=== PATIENT | female | born 1995 | race Caucasian/White ===

== ENCOUNTER 2020-02-18 16:08 | Outpatient (CLI) | payer OTHER ==
--- NOTE | 2020-02-18 16:55 | RADIOLOGY REPORT (SQ) ---
EXAM DESCRIPTION: U/S OB LIMITED IMAGES COMPLETED DATE/TIME: 02/18/2020 4:40 pm REASON FOR STUDY: 21.2 weeks with Vaginal bleeding COMPARISON: None. TECHNIQUE: Limited transabdominal grayscale ultrasound for evaluation of specific requested obstetri tacos parameters. LIMITATIONS: None. FINDINGS: CERVICAL LENGTH: 3.7 cm Closed. LVP: 4.3 cm. FHR: 140 beats per minute. PRESENTATION: Cephalic. PLACENTA: Anterior ANATOMY: Not assessed OTHER: No other significant findings. US EGA: 21 weeks 1 day Clinical EGA: 21 weeks 2 days IMPRESSION: LIMITED OBSTETRICAL ULTRASOUND WITH MEASURED PARAMETERS DELINEATED ABOVE. Trimester of : Second trimester - 13 weeks 1 day to 27 weeks 6 days. TECHNICAL DOCUMENTATION: JOB ID: [id number] 2010 [employer]- All Rights Reserved Reading location - IP/workstation name: [email or web address]
[2020-02-18 18:04] LABS: AMORPHOUS SEDIMENT,URINE TRACE /HPF; APPEARANCE,URINE SLIGHTLY-CLOUDY; BILIRUBIN,URINE NEGATIVE (NEGATIVE); COLOR,URINE YELLOW; GLUCOSE, URINE NEGATIVE (NEGATIVE); KETONES,URINE NEGATIVE (NEGATIVE); LEUKOCYTE ESTERASE,URINE LARGE (NEGATIVE); NITRITE,URINE NEGATIVE (NEGATIVE); PROTEIN,URINE NEGATIVE (NEGATIVE); UROBILINOGEN,URINE NEGATIVE mg/dL (<2.0)
[2020-02-18] MEDS ORDERED: LIDOCAINE 1% INJ-PF (10 MG/ML) 30 ML SDV ONE (18:09)
[2020-02-18] MEDS ORDERED: CEFTRIAXONE INJ 1000 MG VIAL ONE (18:09)
[2020-02-18 18:15] LABS: URINE AMPHETAMINES SCREEN NEGATIVE; URINE BARBITURATES SCREEN NEGATIVE; URINE BENZODIAZEPINES SCREEN NEGATIVE; URINE COCAINE SCREEN NEGATIVE; URINE MARIJUANA (THC) SCREEN NEGATIVE; URINE METHADONE SCREEN NEGATIVE; URINE PHENCYCLIDINE SCREEN NEGATIVE
[2020-02-18] MEDS ORDERED: LIDOCAINE 1% INJ-PF (10 MG/ML) 30 ML SDV INJ ONE (18:30)
[2020-02-18] MEDS ORDERED: CEFTRIAXONE INJ 500 MG VIAL IM ONE (18:30)
== END 2020-02-18 18:33 | disposition home or self-care (01) ==
LOC: LC 16:08
PROVIDERS: ATTEND Student in an Organized Health Care Education/Training Program
DX: O46.92 Antepartum hemorrhage, unspecified, second trimester (principal); Z3A.21 21 weeks gestation of pregnancy
CPT/HCPCS: 81001; 80307; 76815; 59899; J3490; J0696

== ENCOUNTER 2020-05-13 09:36 | Outpatient (CLI) | payer OTHER ==
[2020-05-13 10:18] LABS: BACTERIA (WET MOUNT) 4+ BACTERIA SEEN; EPITHELIALS (WET MOUNT) 4+ EPITHELIALS SEEN; RBCS (WET MOUNT) FEW RBCS SEEN; T.VAGINALIS (WET MOUNT) TRICHOMONAS SEEN; WBCS (WET MOUNT) 3+ WBCS SEEN; YEAST (WET MOUNT) NO YEAST SEEN
[2020-05-13 10:20] LABS: APPEARANCE,URINE CLOUDY; BILIRUBIN,URINE NEGATIVE (NEGATIVE); COLOR,URINE YELLOW; GLUCOSE, URINE NEGATIVE (NEGATIVE); KETONES,URINE NEGATIVE (NEGATIVE); LEUKOCYTE ESTERASE,URINE LARGE (NEGATIVE); NITRITE,URINE NEGATIVE (NEGATIVE); PROTEIN,URINE NEGATIVE (NEGATIVE); UROBILINOGEN,URINE NEGATIVE mg/dL (<2.0)
[2020-05-13 10:36] LABS: URINE AMPHETAMINES SCREEN NEGATIVE; URINE BARBITURATES SCREEN NEGATIVE; URINE BENZODIAZEPINES SCREEN NEGATIVE; URINE COCAINE SCREEN NEGATIVE; URINE MARIJUANA (THC) SCREEN NEGATIVE; URINE METHADONE SCREEN NEGATIVE; URINE PHENCYCLIDINE SCREEN NEGATIVE
[2020-05-13] MEDS ORDERED: METRONIDAZOLE 500 MG TABLET ONE (11:01)
[2020-05-13] MEDS ORDERED: METRONIDAZOLE 500 MG TABLET PO ONE (11:07)
--- NOTE | 2020-05-13 11:42 | Non Stress Test Report ---
Non Stress Test Datetime Report Generated by CPN: 05/13/2020 11:41 DEMOGRAPHIC Test Number: 1 EGA NST: 33.3 INDICATION Indication for Study (NST) Other: back pain MONITORING Monitor Explained: Monitor Explained; Test Explained; Patient Verbalized Understanding Time on Monitor: 05/13/2020 11:16 Time off Monitor: 05/13/2020 11:40 NST Duration: 24 NST INTERVENTIONS NST Interventions: None Physician Notified NST: Dr Phan BABY A: [id number] BABY A Movement : Present Contraction Frequency : none FHR Baseline : 130 Accelerations : 15X15 Decelerations : None Variability : Moderate 6-25bpm NST Review: Meets Criteria for Reactive NST NST Results: Reactive NST REPORT Report Trigger: Send Report
[2020-05-13 12:34] LABS: CHLAM PCR NOT DETECTED (NOT DETECT)
== END 2020-05-13 11:51 | disposition home or self-care (01) ==
LOC: LC 09:36
PROVIDERS: ATTEND Obstetrics & Gynecology
DX: O98.313 Other infections with a predominantly sexual mode of transmission complicating pregnancy, third trimester (principal); A59.01 Trichomonal vulvovaginitis; Z3A.33 33 weeks gestation of pregnancy
CPT/HCPCS: 80307; 81001; 84112; 87210; 87491; 87591

== ENCOUNTER 2020-07-03 19:46 | Inpatient (IN) | payer OTHER ==
[2020-07-03] MEDS ORDERED: OXYTOCIN/0.9 % SODIUM CHLORIDE 30 UNIT/500 ML RTUINJ IV PRN (20:13)
[2020-07-03] MEDS ORDERED: RINGERS SOLUTION,LACTATED 1,000 ML IV ONE (20:13)
[2020-07-03] MEDS ORDERED: DINOPROSTONE 10 MG VAGINAL INSERT.SR PV PRN (20:13)
[2020-07-03 20:31] LABS: APPEARANCE,URINE CLEAR; BILIRUBIN,URINE NEGATIVE (NEGATIVE); COLOR,URINE YELLOW; GLUCOSE, URINE NEGATIVE (NEGATIVE); KETONES,URINE NEGATIVE (NEGATIVE); LEUKOCYTE ESTERASE,URINE NEGATIVE (NEGATIVE); NITRITE,URINE NEGATIVE (NEGATIVE); PROTEIN,URINE NEGATIVE (NEGATIVE); URINE SPECIFIC GRAVITY 1.012; UROBILINOGEN,URINE NEGATIVE mg/dL (<2.0)
[2020-07-03 20:46] LABS: URINE AMPHETAMINES SCREEN NEGATIVE; URINE BARBITURATES SCREEN NEGATIVE; URINE BENZODIAZEPINES SCREEN NEGATIVE; URINE COCAINE SCREEN NEGATIVE; URINE MARIJUANA (THC) SCREEN NEGATIVE; URINE METHADONE SCREEN NEGATIVE; URINE PHENCYCLIDINE SCREEN NEGATIVE
[2020-07-03] MEDS ORDERED: OXYTOCIN/0.9 % SODIUM CHLORIDE 30 UNIT/500 ML RTUINJ ONE (21:14)
[2020-07-03] MEDS ORDERED: MISOPROSTOL 0.2 MG TABLET ONE (21:14)
[2020-07-03] MEDS ORDERED: OXYTOCIN 10 UNIT/ML VIAL ONE (21:14)
[2020-07-03] MEDS ORDERED: LIDOCAINE 1% INJ-PF (10 MG/ML) 30 ML SDV ONE (21:14)
[2020-07-03] MEDS ORDERED: DINOPROSTONE 10 MG VAGINAL INSERT.SR ONE (21:59)
[2020-07-03] MEDS: RINGERS SOLUTION,LACTATED 1,000 ML IV PRN (22:08)
[2020-07-03 22:12] LABS: ABSOLUTE BASOPHILS # (AUTO) 0.1 10^3/uL (0.0-0.2); ABSOLUTE EOSINOPHILS # (AUTO) 0.1 10^3/uL (0.0-0.6); ABSOLUTE LYMPHOCYTES (AUTO) 1.9 10^3/uL (0.5-4.7); ABSOLUTE NEUT (AUTO) 11.6 10^3/uL (1.7-8.2); BASOPHILS % (AUTO) 0.4 % (0-2); HEMATOCRIT 39.3 % (36.0-47.0); HEMOGLOBIN 13.3 g/dL (12.0-15.5); LYMPHOCYTES % (AUTO) 13.1 % (13-45); MEAN CORPUSCULAR HEMOGLOBIN 28.3 pg (27.0-33.4); MEAN CORPUSCULAR HGB CONC 33.8 g/dL (32.0-36.0); MEAN CORPUSCULAR VOLUME 84 fl (80-97); PLATELET COUNT 183 10^3/uL (150-450); RED BLOOD COUNT 4.69 10^6/uL (3.72-5.28); RED CELL DISTRIBUTION WIDTH 14.6 % (11.5-14.0); SEGMENTED NEUTROPHILS % (AUTO) 78.5 % (42-78); TOTAL CELLS COUNTED % (AUTO) 100 %; WHITE BLOOD COUNT 14.8 10^3/uL (4.0-10.5)
[2020-07-04] MEDS ORDERED: ZOLPIDEM TARTRATE 5 MG TABLET ONE (00:11)
[2020-07-04] MEDS: RINGERS SOLUTION,LACTATED 1,000 ML IV PRN ×2 (05:54→16:33)
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
[2020-07-04] MEDS ORDERED: MISOPROSTOL 0.1 MG TABLET ONE (10:47)
[2020-07-04] MEDS ORDERED: MISOPROSTOL 0.2 MG TABLET ONE (10:47)
[2020-07-04] MEDS ORDERED: FENTANYL/BUPIVACAINE/NS/PF 300 MCG/150 ML RTUINJ EPI ONE (15:24)
[2020-07-04] MEDS ORDERED: ROPIVACAINE HCL 0.2% INJ/PF (2 MG/ML) 20 ML SDV ONE (15:24)
[2020-07-04] MEDS ORDERED: EPHEDRINE SULFATE INJ 50 MG/1 ML AMPULE ONE (15:24)
--- NOTE | 2020-07-04 15:26 | L&D Progress Notes ---
PROGRESS NOTES Datetime Report Generated by CPN: 07/04/2020 15:26 PROGRESS NOTE Procedures: Artificial ROM; Sterile Vag Exam Plan: Continue Present Management; Induction Informed Consent Obtained: Vaginal Delivery; Induction of Labor; Risks, Benefits and Alternatives Discussed Vital Signs : Reviewed; Within Normal Limits Comment: S: breathing and crying with contractions, desires epidural at this time O:VSS, cervix as stated, cat I tracing, uc q 1.5-3min A: IUP @ 40w6d IOL secondary to post dates-stable, progressing well AROM-clear fluid, tolerated well P: continue IOL, start pitocin at this time, bolus for epidural on going VAGINAL EXAM Dilatation: 1 Effacement: 25 Station: -3 Contractions: Irregular LAST VAGINAL EXAM-NURSING Nursing Exam Dilitation: 4.0 Nursing Exam Effacement: 60 Nursing Exam Station: -1 Nursing Exam Contractions: Patient turned over while sleeping, RN adjusting MEMBRANES Pooling: Negative Membranes: Ruptured Amniotic Fluid Color: Clear FETUS A FHR Category: Category I : 40.5 Presentation: Vertex SIGNATURE SIGNATURE: [id number];[id number];13,[id number] Assignment: Christa Barr MD Signature: with User ID: Rom : with User ID: Rom
[2020-07-04] MEDS ORDERED: MAG HYDROX/AL HYDROX/SIMETH SUSP 30 ML UDCUP ONE (20:22)
[2020-07-04] MEDS ORDERED: PROMETHAZINE HCL INJ 25 MG/1 ML VIAL ONE (23:16)
[2020-07-04] MEDS ORDERED: ACETAMINOPHEN 325 MG TABLET ONE (23:58)
[2020-07-05] MEDS ORDERED: PROMETHAZINE HCL INJ 25 MG/1 ML VIAL IV ONE
[2020-07-05] MEDS ORDERED: ACETAMINOPHEN 325 MG TABLET PO ONE
[2020-07-05] MEDS ORDERED: DIPHENHYDRAMINE HCL 50 MG/ML VIAL IV ONE (00:45)
[2020-07-05] MEDS ORDERED: DIPHENHYDRAMINE HCL 50 MG/ML VIAL ONE (00:46)
[2020-07-05] MEDS ORDERED: NALBUPHINE HCL INJ 10 MG/1 ML AMPULE INJ ONE (04:28)
[2020-07-05] MEDS ORDERED: NALBUPHINE HCL INJ 10 MG/1 ML AMPULE ONE (04:30)
[2020-07-05] MEDS ORDERED: FENTANYL/BUPIVACAINE/NS/PF 300 MCG/150 ML RTUINJ EPI ONE (04:30)
[2020-07-05] MEDS ORDERED: AMPICILLIN SOD INJ 2 GM VIAL ONE (04:56)
[2020-07-05] MEDS: AMPICILLIN SODIUM 2 GM in NORMAL SALINE 100 ML IV SCH ×4 (05:04→23:27)
[2020-07-05] MEDS ORDERED: AMPICILLIN SOD INJ 2 GM VIAL IV SCH (06:00)
[2020-07-05] MEDS ORDERED: GLYCERIN/WITCH HAZEL LEAF 1 EACH MED..WIPE TP PRN (07:01)
[2020-07-05] MEDS ORDERED: ACETAMINOPHEN 325 MG TABLET PO PRN (07:01)
[2020-07-05] MEDS ORDERED: ACETAMINOPHEN WITH CODEINE #3 TABLET PO PRN ×2 (07:01)
[2020-07-05] MEDS ORDERED: MAGNESIUM HYDROXIDE SUSP 30 ML UDCUP PO PRN (07:01)
[2020-07-05] MEDS ORDERED: ZOLPIDEM TARTRATE 5 MG TABLET PO PRN (07:01)
[2020-07-05] MEDS ORDERED: OXYTOCIN/0.9 % SODIUM CHLORIDE 30 UNIT/500 ML RTUINJ IV PRN (07:01)
[2020-07-05] MEDS ORDERED: NA PHOS,M-B/NA PHOS,DI-BA (ADULT) 133 ML ENEMA PR PRN (07:01)
[2020-07-05] MEDS ORDERED: BENZOCAINE/MENTHOL AEROSOL SPRAY 56 ML TOP PRN (07:01)
[2020-07-05] MEDS ORDERED: PROMETHAZINE HCL INJ 25 MG/1 ML VIAL IV PRN (07:01)
[2020-07-05] MEDS ORDERED: DIPH/PERTUSS(ACELL)/TETANUS VAC/PF 0.5 ML SYR (>=10YO) IM PRN (07:01)
[2020-07-05] MEDS ORDERED: PROMETHAZINE HCL 25 MG SUPP.RECT PR PRN (07:01)
[2020-07-05] MEDS ORDERED: PROMETHAZINE HCL 25 MG TABLET PO PRN (07:01)
[2020-07-05] MEDS ORDERED: DIBUCAINE 1% OINTMENT 28 GM TP PRN (07:01)
[2020-07-05] MEDS ORDERED: MEASLES,MUMPS&RUBELLA VACC/PF 0.5 ML VIAL SUBCUT PRN (07:01)
[2020-07-05] MEDS ORDERED: PSEUDOEPHEDRINE HCL 30 MG TABLET PO PRN (07:01)
[2020-07-05] MEDS ORDERED: DIPHENHYDRAMINE HCL 25 MG CAPSULE PO PRN (07:01)
[2020-07-05] MEDS ORDERED: ACETAMINOPHEN 650 MG SUPP.RECT PR PRN (07:01)
[2020-07-05] MEDS ORDERED: IBUPROFEN 800 MG TABLET ONE (07:23)
[2020-07-05] MEDS ORDERED: BENZOCAINE/MENTHOL AEROSOL SPRAY 56 ML ONE (07:23)
[2020-07-05] MEDS: IBUPROFEN 800 MG TABLET PO SCH ×3 (07:28→22:12)
[2020-07-05] MEDS: DOCUSATE SODIUM 100 MG CAPSULE PO SCH ×2 (11:26→17:31)
[2020-07-05] MEDS: FAMOTIDINE 20 MG TABLET PO SCH ×2 (11:26→22:12)
[2020-07-05] MEDS: PRENATAL VITAMIN W DHA CAPSULE PO SCH (11:26)
[2020-07-05] MEDS: SENNOSIDES/DOCUSATE 8.6-50 MG 1 EACH TABLET PO SCH (11:26)
[2020-07-05] MEDS: FERROUS SULFATE 325 MG TABLET PO SCH ×2 (11:26→17:31)
[2020-07-05] MEDS ORDERED: GENTAMICIN SULFATE INJ 80 MG/2 ML VIAL IV SCH (14:00)
[2020-07-06] MEDS: IBUPROFEN 800 MG TABLET PO SCH ×3 (05:48→22:24)
[2020-07-06] MEDS: AMPICILLIN SODIUM 2 GM in NORMAL SALINE 100 ML IV SCH (05:48)
[2020-07-06 08:42] LABS: HEMATOCRIT 30.1 % (36.0-47.0); MEAN CORPUSCULAR HEMOGLOBIN 28.8 pg (27.0-33.4); MEAN CORPUSCULAR HGB CONC 34.9 g/dL (32.0-36.0); MEAN CORPUSCULAR VOLUME 83 fl (80-97); PLATELET COUNT 140 10^3/uL (150-450); RED BLOOD COUNT 3.64 10^6/uL (3.72-5.28); RED CELL DISTRIBUTION WIDTH 14.6 % (11.5-14.0); WHITE BLOOD COUNT 17.2 10^3/uL (4.0-10.5)
[2020-07-06 08:45] LABS: HEMOGLOBIN 10.5 g/dL (12.0-15.5)
[2020-07-06] MEDS: PRENATAL VITAMIN W DHA CAPSULE PO SCH (10:10)
[2020-07-06] MEDS: FAMOTIDINE 20 MG TABLET PO SCH ×2 (10:10→22:06)
[2020-07-06] MEDS: FERROUS SULFATE 325 MG TABLET PO SCH ×2 (10:11→17:16)
[2020-07-06] MEDS: DOCUSATE SODIUM 100 MG CAPSULE PO SCH ×2 (10:11→17:15)
[2020-07-06] MEDS: SENNOSIDES/DOCUSATE 8.6-50 MG 1 EACH TABLET PO SCH (10:12)
--- NOTE | 2020-07-06 10:15 | PDOC PROGRESS REPORT ---
Subjective-OB Progress Note for:: 07/06/20 Subjective: Pt doing well, no complaints. She reports light bleeding, reg diet and voiding w/o difficulty. Physical Exam (OB) Vital Signs: Temp Pulse Resp BP Pulse Ox 97.6 F 99 16 114/67 99 07/06/20 08:00 07/06/20 08:00 07/06/20 08:00 07/06/20 08:00 07/06/20 08:00 Intake & Output 07/05/20 07/06/20 07/07/20 06:59 06:59 06:59 Intake Total 1000 2670 Balance 1000 2670 - PIH/Pre-Eclampsia DTR's: 2 + Clonus: Negative Headache: Absent Epigastric Pain: No Visual Changes: No - Maternal Morbidity 59. Maternal Morbidity (serious complications experinced by the mother associated with labor and delivery: None of the above - Lochia Lochia Amount: Scant < 10 ml Lochia Color: Rubra/Red - Abdomen Description: Soft, Round Hernia Present: No Fundal Description: Firm, Midline Fundal Height: u/u - u/2 Objective-Diagnostic Laboratory: 07/06/20 07:40 07/06/20 07/06/20 07:40 07:40 WBC 17.2 H RBC 3.64 L Hgb 10.5 L D Hct 30.1 L MCV 83 MCH 28.8 MCHC 34.9 RDW 14.6 H Plt Count 140 L Blood Type O NEGATIVE Assessment and Plan(PN) - Assessment and Plan (1) Vaginal delivery Is this a current diagnosis for this admission?: Yes (2) Encounter for induction of labor Is this a current diagnosis for this admission?: Yes - Time Spent with Patient Time with patient: Less than 15 minutes Medications reviewed and adjusted accordingly: Yes - Disposition Anticipated Discharge Disposition: Home, Self Care Anticipated Discharge Timeframe: within 24 hours
[2020-07-07] MEDS: IBUPROFEN 800 MG TABLET PO SCH (06:46)
[2020-07-07 08:25] VITALS: BP 107/81
[2020-07-07] MEDS: PRENATAL VITAMIN W DHA CAPSULE PO SCH (09:46)
[2020-07-07] MEDS: FERROUS SULFATE 325 MG TABLET PO SCH (09:46)
[2020-07-07] MEDS: SENNOSIDES/DOCUSATE 8.6-50 MG 1 EACH TABLET PO SCH (09:47)
[2020-07-07] MEDS: FAMOTIDINE 20 MG TABLET PO SCH (09:47)
[2020-07-07] MEDS: DOCUSATE SODIUM 100 MG CAPSULE PO SCH (09:47)
--- NOTE | 2020-07-07 12:35 | PDOC DISCHARGE SUMMARY ---
Impression - Admit/DC Date/PCP Admission Date/Primary Care Provider: 07/03/20 19:50 NO LOCALMD Discharge Date: 07/07/20 - Discharge Diagnosis (1) Vaginal delivery Is this a current diagnosis for this admission?: Yes (2) Encounter for induction of labor Is this a current diagnosis for this admission?: Yes - Additional Information Resuscitation Status: Full Code Discharge Diet: Regular Discharge Activity: Balance Activity w/Rest, Pelvic Rest Referrals: LOCALMD,NO [Primary Care Provider] - Prescriptions: Ibuprofen [Motrin 800 mg Tablet] 800 mg PO Q8HP PRN #60 tablet PRN Reason: Home Medications: Pnv No.95/Ferrous Fum/Folic AC [ Tablet] 1 each PO DAILY 02/18/20 Ibuprofen [Motrin 800 mg Tablet] 800 mg PO Q8HP PRN #60 tablet 07/07/20 HPI Gestational Age: 40.6 Reason(s) for Admission: Induction of Labor Procedures: NST Intrapartum Procedure(s): Spontaneous Vaginal Delivery Complication(s): Laceration-Perineal, Laceration-Labial Laceration-Degree: 2nd Hospital Course 59. Maternal Morbidity (serious complications experinced by the mother associated with labor and delivery: None of the above Results Laboratory Results: WBC 17.2 10^3/uL (4.0-10.5) H 07/06/20 07:40 RBC 3.64 10^6/uL (3.72-5.28) L 07/06/20 07:40 Hgb 10.5 g/dL (12.0-15.5) L D 07/06/20 07:40 Hct 30.1 % (36.0-47.0) L 07/06/20 07:40 MCV 83 fl (80-97) 07/06/20 07:40 MCH 28.8 pg (27.0-33.4) 07/06/20 07:40 MCHC 34.9 g/dL (32.0-36.0) 07/06/20 07:40 RDW 14.6 % (11.5-14.0) H 07/06/20 07:40 Plt Count 140 10^3/uL (150-450) L 07/06/20 07:40 Lymph % (Auto) 13.1 % (13-45) 11/03/20 21:54 Amelia % (Auto) 7.0 % (3-13) 07/03/20 21:54 Eos % (Auto) 1.0 % (0-6) 07/03/20 21:54 Baso % (Auto) 0.4 % (0-2) 07/03/20 21:54 Absolute Neuts (auto) 11.6 10^3/uL (1.7-8.2) H 07/03/20 21:54 Absolute Lymphs (auto) 1.9 10^3/uL (0.5-4.7) 07/03/20 21:54 Absolute Monos (auto) 1.0 10^3/uL (0.1-1.4) 07/03/20 21:54 Absolute Eos (auto) 0.1 10^3/uL (0.0-0.6) 07/03/20 21:54 Absolute Basos (auto) 0.1 10^3/uL (0.0-0.2) 07/03/20 21:54 Seg Neutrophils % 78.5 % (42-78) H 07/03/20 21:54 Urine Color YELLOW 07/03/20 20:05 Urine Appearance CLEAR 07/03/20 20:05 Urine pH 7.0 (5.0-9.0) 07/03/20 20:05 Ur Specific [place] 1.012 07/03/20 20:05 Urine Protein NEGATIVE mg/dL (NEGATIVE) 07/03/20 20:05 Urine Glucose (UA) NEGATIVE mg/dL (NEGATIVE) 07/03/20 20:05 Urine Ketones NEGATIVE mg/dL (NEGATIVE) 07/03/20 20:05 Urine Blood NEGATIVE (NEGATIVE) 07/03/20 20:05 Urine Nitrite NEGATIVE (NEGATIVE) 07/03/20 20:05 Urine Bilirubin NEGATIVE (NEGATIVE) 07/03/20 20:05 Urine Urobilinogen NEGATIVE mg/dL (<2.0) 07/03/20 20:05 Ur Leukocyte Esterase NEGATIVE (NEGATIVE) 07/03/20 20:05 Urine Ascorbic Acid 20 (NEGATIVE) H 07/03/20 20:05 Urine Opiates Screen NEGATIVE 07/03/20 20:05 Urine Methadone Screen NEGATIVE 07/03/20 20:05 Ur Barbiturates Screen NEGATIVE 07/03/20 20:05 Ur Phencyclidine Scrn NEGATIVE 07/03/20 20:05 Ur Amphetamines Screen NEGATIVE 07/03/20 20:05 U Benzodiazepines Scrn NEGATIVE 07/03/20 20:05 Urine Cocaine Screen NEGATIVE 07/03/20 20:05 U Marijuana (THC) Screen NEGATIVE 07/03/20 20:05 RPR NONREACTIVE (NONREACTIVE) 07/03/20 21:54 Blood Type O NEGATIVE 07/06/20 07:40 Antibody Screen NEGATIVE 07/03/20 21:54 Screen NEGATIVE 07/06/20 07:40 Plan Plan of Treatment: f/u at [facility] Time Spent: Less than 30 Minutes
--- NOTE | 2020-07-10 11:41 | Delivery Summary ---
Del Sum A-C Datetime Report Generated by CPN: 07/10/2020 11:41 DELIVERY PERSONNEL DELIVERY PERSONNEL: [id number] Delivery Doctor:: Christa Barr MD Labor and Delivery Nurse:: Ruchi Brewer RNsuspender cutter Nurse:: David Parisi RN Production Line/SUPERVISOR SHIPFITTERS: Anthony Greer, MICROFICHE CAMERA OPERATOR MATERNAL INFORMATION Delivery Anesthesia: Epidural Medications After Delivery: Pitocin 30 Units in 500ml NS/D5W Delivery QBL: 300 Maternal Complications: Maternal Fever Provider Comments: Called to patients room as she was complete and +3 with urge to push. Pushed through 1/2 contractions and delivered a viable female . Heavy meconium was noted. Nuchal cord x1 easily reduced. After delivery of the head, the shoulders and rest of the body was delivered easily. Cord doubly clamped and cut. Infant to infant for suctioning due to meconium. Both mother and infant stable. LABOR SUMMARY EDC: 06/28/2020 00:00 No. Babies in Womb: 1 Attempted: No Labor Anesthesia: Epidural LABOR INFORMATION Reason for Induction: Postterm Onset of Labor: 07/04/2020 17:04 Complete Dilatation: 07/05/2020 06:13 Cervical Ripening Agents: Cytotec @ Cervical Ripening Agents: Cervidil Oxytocin: Induction Group B Beta Strep: Negative Antibiotics # of Doses: 1 Antibiotics Time of Last Dose: 07/05/2020 05:00 Steroids Given: None Reason Steroids Not Administered: Not Applicable MEMBRANES Membranes Rupture Method: Artificial Rupture of Membranes: 07/04/2020 15:04 Length of Rupture (hr): 15.53 Amniotic Fluid Color: Clear Amniotic Fluid Amount: Large Amniotic Fluid Odor: Normal STAGES OF LABOR Stage 1 hr: 13 Stage 1 min: 9 Stage 2 hr: 0 Stage 2 min: 23 Stage 3 hr: 0 Stage 3 min: 4 Total Time in Labor hr: 13 Total Time in Labor min: 36 VAGINAL DELIVERY Episiotomy: None Laceration #1: Perineal Laceration Extension #1: Second Degree Laceration #2: Vaginal Laceration Extension #2: First Degree Other Laceration: small first degree labial laceration left-repaired with figure of eight Laceration Repair: Yes Laceration Repair Note: Repaired second degree in layered closure. Repaired first degree in a running fashion Sponge Count Correct: Yes Sharps Count Correct: Yes CSECTION DELIVERY Primary Indication: N/A Secondary Indication: N/A CSection Incidence: N/A Labor: N/A CSection Incision: N/A BABY A INFORMATION Infant Delivery Date/Time: 07/05/2020 06:36 Method of Delivery: Vaginal Nurse Controlled Delivery: No Born in Route : No : N/A Forceps: N/A Vacuum Extraction: N/A Shoulder Dystocia : No PRESENTATION/POSITION BABY A Presentation: Cephalic Presentation: Cephalic Presentation: Cephalic Cephalic Presentation: Vertex Vertex Position: Left Occipital Anterior Breech Presentation: N/A PLACENTA INFORMATION BABY A Placenta Delivery Time : 07/05/2020 06:40 Placenta Method of Delivery: Spontaneous Placenta Status: Delivered SCORES BABY A Heart Rate 1 min: >100 bpm Resp Effort 1 min: Slow, Irregular Reflex Irritability 1 min: Grimace Muscle Tone 1 min: Some Flexion of Extremities Color 1 min: Body [place], Extremities Blue SCORE 1 MIN: 6 Heart Rate 5 min: >100 bpm Resp Effort 5 min: Slow, Irregular Reflex Irritability 5 min: Cough or Sneeze or Pulls Away Muscle Tone 5 min: Some Flexion of Extremities Color 5 min: Body [place], Extremities Blue Resuscitation Effort 5 min: Tactile Stimulation SCORE 5 MIN: 7 INFANT INFORMATION BABY A Gestational Age at Delivery: 41.0 Gestational Status: Late Term- 41- 41.6 Weeks Outcome : Liveborn Infant Condition : Stable Sex: Female IDENTIFICATION BABY A Verification Date/Time: 07/05/2020 06:50 ID Band Number: [id number] Mother's Name Verified: Yes Infant RN Verifying : Marisa Barcenas RN; Tracie Brewer RN WEIGHT/LENGTH BABY A Birthweight (gm): 3340 Weight (lb): 7 Weight (oz): 6 Infant Length (in): 20.50 Infant Length (cm): 52.07 CORD INFORMATION BABY A No. Cord Vessels: 3 Nuchal Cord : Around Neck x1, Loose Cord Blood Taken: Yes-For Storage (Mom's Blood type +) Suction: Mouth ASSESSMENT BABY A Skin to Skin: Yes BABY B INFORMATION : N/A SIGNATURES Signature: with User ID: Dorina : with User ID: Dorina
== END 2020-07-07 14:47 | disposition home or self-care (01) | DRG 806 ==
LOC: LC 19:46 → LR 19:50 → 2S 07-05 10:26
PROVIDERS: ADMIT Obstetrics & Gynecology; ATTEND Obstetrics & Gynecology
PROC: 3E0P7VZ Introduction of Hormone into Female Reproductive, Via Natural or Artificial Opening (ICD-10-PCS; 2020-07-03)
PROC: 3E033VJ Introduction of Other Hormone into Peripheral Vein, Percutaneous Approach (ICD-10-PCS; 2020-07-04)
PROC: 10E0XZZ Delivery of Products of Conception, External Approach (ICD-10-PCS; principal; 2020-07-05)
PROC: 0KQM0ZZ Repair Perineum Muscle, Open Approach (ICD-10-PCS; 2020-07-05)
DX: O48.0 Post-term pregnancy (principal); O75.2 Pyrexia during labor, not elsewhere classified; Z37.0 Single live birth; O70.1 Second degree perineal laceration during delivery; O77.0 Labor and delivery complicated by meconium in amniotic fluid; O69.81X0 Labor and delivery complicated by cord around neck, without compression, not applicable or unspecified; O26.893 Other specified pregnancy related conditions, third trimester; Z3A.40 40 weeks gestation of pregnancy; Z88.1 Allergy status to other antibiotic agents; Z88.6 Allergy status to analgesic agent; Z62.810 Personal history of physical and sexual abuse in childhood; Z86.19 Personal history of other infectious and parasitic diseases; Z67.41 Type O blood, Rh negative
CPT/HCPCS: 1967; 36415; 80307; 81005; 85025; 85027; 85461; 86592; 86850; 86900; 86901; 88307; 94760; J0290; J1200; J2300; J2550; J2590; J2790; J2795; J3010; J3490; J7050